=== PATIENT | female | born 1980 ===

== ENCOUNTER 2016-12-27 10:09 | Emergency (ER) | payer OTHER ==
[2016-12-27] MEDS ORDERED: TORADOL IM ONE (15:19)
--- NOTE | 2016-12-27 15:25 | Emergency Department Report ---
ED General Adult HPI - General Chief complaint: Pain General Stated complaint: LFT SIDE BODY PAIN Source: patient Mode of arrival: Ambulatory Limitations: No Limitations - Related Data Previous Rx's Medication Instructions Recorded Last Taken Type Clindamycin [Cleocin] 600 mg PO Q8H #30 capsule 02/01/15 Unknown Rx Mupirocin [Bactroban 2% Oint] 1 applic TP TID #1 tube 02/01/15 Unknown Rx Naproxen [Naprosyn] 375 mg PO BID #14 tablet 03/22/16 Unknown Rx traMADol [Ultram 50 MG tab] 50 mg PO Q6HR PRN #14 tablet 03/22/16 Unknown Rx Allergies Allergy/AdvReac Type Severity Reaction Status Date / Time Penicillins Allergy Angioedema Verified 12/27/16 11:28 ED Review of Systems ROS: Stated complaint: LFT SIDE BODY PAIN Other details as noted in HPI ED Past Medical Hx - Past Medical History Hx Hypertension: Yes Hx Asthma: Yes - Surgical History Additional Surgical History: x 4 - Social History Smoking Status: Never Smoker Substance Use Type: None - Medications Home Medications: Home Medications Medication Instructions Recorded Confirmed Last Taken Type Clindamycin [Cleocin] 600 mg PO Q8H #30 capsule 02/01/15 Unknown Rx Mupirocin [Bactroban 2% Oint] 1 applic TP TID #1 tube 02/01/15 Unknown Rx Naproxen [Naprosyn] 375 mg PO BID #14 tablet 03/22/16 Unknown Rx traMADol [Ultram 50 MG tab] 50 mg PO Q6HR PRN #14 tablet 03/22/16 Unknown Rx ED Physical Exam - General Limitations: No Limitations General appearance: alert, in no apparent distress - Head Head exam: Present: atraumatic, normocephalic - Eye Eye exam: Present: normal appearance, EOMI - ENT ENT exam: Present: normal orophraynx, mucous membranes moist, TM's normal bilaterally, normal external ear exam - Neck Neck exam: Present: normal inspection, full ROM. Absent: tenderness, lymphadenopathy, thyromegaly - Respiratory Respiratory exam: Present: chest wall tenderness - Cardiovascular Cardiovascular Exam: Present: regular rate, normal rhythm, normal heart sounds ED Course Vital Signs 12/27/16 11:20 Temperature 98.5 F Pulse Rate 97 H Respiratory 20 Rate Blood Pressure 141/96 O2 Sat by Pulse 100 Oximetry - Reevaluation(s) Reevaluation #1: 12/27/16 17:22 This is been reassessed by this provider. She reports that the Toradol did not help now she is having chest pain and left arm numbness we will start a chest pain protocol. For her over to the main ER for further evaluation. Critical care attestation.: If time is entered above; I have spent that time in minutes in the direct care of this critically ill patient, excluding procedure time. ED Disposition Condition: Stable
[2016-12-27 18:10] LABS: Basophils % (Auto) 0.5 % (0.0-1.8); Eosinophils % (Auto) 1.2 % (0.0-4.3); Hematocrit 43.3 % (30.3-42.9); Hemoglobin 14.4 gm/dl (10.1-14.3); Mean Corpuscular HGB Conc 33 % (30-34); Mean Corpuscular Hemoglobin 27 pg (28-32); Mean Corpuscular Volume 82 fl (79-97); Platelet Count 335 K/mm3 (140-440); Red Blood Count 5.31 M/mm3 (3.65-5.03); Red Cell Distribution Width 13.5 % (13.2-15.2)
[2016-12-27 18:47] LABS: BUN/Creatinine Ratio 14.28; Blood Urea Nitrogen 10 mg/dL (7-17); Calcium 9.4 mg/dL (8.4-10.2); Carbon Dioxide 26 mmol/L (22-30); Chloride 98.4 mmol/L (98-107); Glucose 90 mg/dL (65-100); Potassium 4.2 mmol/L (3.6-5.0); Sodium 141 mmol/L (137-145)
[2016-12-27 18:59] LABS: Anion Gap 21 mmol/L
[2016-12-27] MEDS ORDERED: ZOFRAN ODT PO ONE (20:29)
[2016-12-27] MEDS ORDERED: PERCOCET 5/325 PO ONE (20:29)
--- NOTE | 2016-12-27 20:31 | Emergency Department Report ---
HPI - General Chief Complaint: Pain General Time Seen by Provider: 12/27/16 20:27 - HPI HPI: This is a 36-year-old Afro[place] female who drove herself in to be seen today with the complaint of left-sided chest pain, left-sided flank pain, nausea and vomiting that has been going on for the past 2 days. She said she had one episode of vomiting this morning but has been nauseated since. She denies any shortness of breath, fever, diaphoresis, back pain, dysuria or any problems with bowel or bladder. She is not taken anything for symptoms prior to presentation. She denies tobacco abuse or any illicit drug use. She does not have a primary care doctor. No recent travel or sick contacts at home. She has a past medical history of asthma, hypertension and borderline diabetes but does not take any current medications. No history of VT, CVA, PE/DVT. ED Past Medical Hx - Past Medical History Hx Hypertension: Yes Hx Asthma: Yes - Surgical History Additional Surgical History: x 4 - Social History Smoking Status: Never Smoker Substance Use Type: None - Medications Home Medications: Home Medications Medication Instructions Recorded Confirmed Last Taken Type HYDROcodone/APAP 5-325 [[place] 1 each PO Q6HR PRN #12 tablet 12/27/16 Unknown Rx 5/325] Ondansetron [Zofran Odt] 4 mg PO Q8H PRN #10 tab.rapdis 12/27/16 Unknown Rx ED Review of Systems ROS: Stated complaint: LFT SIDE BODY PAIN Other details as noted in HPI Comment: All other systems reviewed and negative Constitutional: denies: chills, fever Eyes: denies: eye pain, eye discharge, vision change ENT: denies: ear pain, throat pain Respiratory: denies: cough, shortness of breath, wheezing Cardiovascular: chest pain. denies: palpitations Gastrointestinal: abdominal pain (flank pain), nausea, vomiting Genitourinary: denies: urgency, dysuria, discharge Musculoskeletal: denies: back pain, joint swelling, arthralgia Skin: denies: rash, lesions Neurological: denies: headache, weakness, paresthesias Physical Exam - Physical Exam Vital Signs: Vital Signs 12/27/16 11:20 Temperature 98.5 F Pulse Rate 97 H Respiratory 20 Rate Blood Pressure 141/96 O2 Sat by Pulse 100 Oximetry Physical Exam: GENERAL: The patient is well-developed well-nourished. HEENT: Normocephalic. Atraumatic. Extraocular motions are intact. Patient has moist mucous membranes. Pupils equal reactive to light bilaterally. No nystagmus. NECK: Supple. Trachea is midline. CHEST/LUNGS: Clear to auscultation. There is no respiratory distress noted. Chest pain is reproducible to palpation of the chest wall. HEART/CARDIOVASCULAR: Regular. There is no tachycardia. There is no gallop rub or murmur. ABDOMEN: Abdomen is soft, nontender. Patient has normal bowel sounds. There is no abdominal distention. SKIN: There is no rash. There is no edema. There is no diaphoresis. NEURO: The patient is awake, alert, and oriented. The patient is cooperative. The patient has no focal neurologic deficits. The patient has normal speech. Cranial nerves II through XII grossly intact. MUSCULOSKELETAL: There is no tenderness or deformity. There is no limitation range of motion. There is no evidence of acute injury. Muscle strength 5 out of 5 for upper and lower extremity bilaterally. ED Course Vital Signs 12/27/16 11:20 Temperature 98.5 F Pulse Rate 97 H Respiratory 20 Rate Blood Pressure 141/96 O2 Sat by Pulse 100 Oximetry ED Medical Decision Making - Lab Data Result diagrams: 12/27/16 18:02 12/27/16 18:02 - EKG Data -: EKG Interpreted by Me EKG shows normal: sinus rhythm, axis, intervals, QRS complexes, ST-T waves Rate: normal - EKG Data When compared to previous EKG there are: previous EKG unavailable Interpretation: normal EKG - Radiology Data Radiology results: image reviewed interpreted by me: Chest x-ray did not show any acute process. Heart is normal shape and size. No effusions. No pneumothorax. No signs of pneumonia seen. X-ray of the abdomen does not show any obstruction or any acute process. There is stool throughout the abdomen. - Medical Decision Making 36-year-old female presents the emergency department with pain to the left side of the chest as well as the left side of the abdomen and right flank. Vital signs stable throughout her ED course. Patient's labs and an unremarkable including negative troponins 2. No signs of infection in the blood or urine, no electrolyte abnormalities, renal sufficiency her glucose 7 valleys. Normal belly labs. Patient is not . EKG does not show any signs of ST elevation VT or dysrhythmia. Chest x-ray and abdomen x-ray did not show any acute processes. Patient was given Zofran for nausea and a pain medication for her discomfort. Upon reevaluation she she is feeling much better. She has a JORDYN score of 0-1. She is not complaining of any shortness of breath and is low on the well's score criteria and negative for the pulmonary embolism rule out criteria. She will be given Zofran, pain medication and referrals for primary care. She'll return to the ER with any worsening of her symptoms or any acute distress. - Differential Diagnosis costochondritis, VT, pneumonia, muscle strain, UTI, Critical Care Time: No Critical care attestation.: If time is entered above; I have spent that time in minutes in the direct care of this critically ill patient, excluding procedure time. ED Disposition Clinical Impression: Costochondritis, Flank pain Chest pain Qualifiers: Chest pain type: unspecified Qualified Code(s): R07.9 - Chest pain, unspecified Disposition: DISCHARGED TO HOME OR SELFCARE Is pt being admited?: No Does the pt Need Aspirin: No Condition: Stable Instructions: Chest Pain (ED), Costochondritis (ED), Flank Pain (ED) Additional Instructions: Please follow up with one of the primary care doctor referrals that you've been given. Return to the emergency department with any worsening of your symptoms or any acute distress. You've been prescribed a medication that is sedating. Therefore this medication cannot be mixed with alcohol, or taken prior to driving, working, or being responsible for children. Prescriptions: HYDROcodone/APAP 5-325 [[place] 5/325] 1 each PO Q6HR PRN #12 tablet PRN Reason: Pain Ondansetron [Zofran Odt] 4 mg PO Q8H PRN #10 tab.rapdis PRN Reason: Nausea Referrals: IRMA SANCHEZ MD [Primary Care Provider] - 3-5 Days LASHAWN STANLEY MD [Staff Physician] - 3-5 Days [facility] [Outside] - 3-[address] [facility] [Outside] - 3-5 Days [facility] [Outside] - 3-5 Days Time of Disposition: 22:49
[2016-12-27 20:38] VITALS: BP 139/91
[2016-12-27 21:49] LABS: Bilirubin,Urine NEG (Negative); Blood,Urine NEG (Negative); Ketones,Urine NEG (Negative); Leukocyte Esterase,Urine NEG (Negative); Mucus,Urine 1+ /HPF; Nitrite,Urine NEG (Negative); Protein,Urine <15 mg/dL mg/dL (Negative); Urobilinogen,Urine < 2.0 mg/dL (<2.0)
--- NOTE | 2016-12-28 07:40 | XRay Report ---
ROUTINE CHEST, TWO VIEWS: HISTORY: chest pain. The trachea, heart, mediastinal contour, lung guillermo and bony thorax are unremarkable. IMPRESSION: Unremarkable chest x-ray. ABDOMEN TWO VIEWS: History: Abdominal pain, flank pain. There is no evidence of free air beneath the diaphragms. The gas pattern within the abdomen is unremarkable. There is no evidence of bowel dilatation, significant air-fluid levels, or masses. The psoas margins are adequately visualized. IMPRESSION: Unremarkable abdomen.
== END 2016-12-27 23:14 | disposition home or self-care (01) ==
LOC: ED 10:09
DX: M94.0 Chondrocostal junction syndrome [Tietze] (principal); R07.9 Chest pain, unspecified; R11.2 Nausea with vomiting, unspecified; R10.9 Unspecified abdominal pain; I10 Essential (primary) hypertension; J45.909 Unspecified asthma, uncomplicated
CPT/HCPCS: 36415; 71020; 74020; 80048; 81001; 81025; 82962; 84484; 85025; 93005; 93010; 96372; 99285; J1885; Q0162